=== PATIENT | female | born 2000 | race Caucasian/White ===

== ENCOUNTER 2023-03-27 08:51 | Outpatient (AMB) | payer BC, SELFPAY ==
[2023-03-27 09:26] VITALS: BP 128/78; PULSE 75; TEMP 36.7; O2SAT 98; BMI 34.3
--- NOTE | 2023-03-27 09:26 | MHC.OFFWIV ---
Intake Vital Signs 03/27/23 09:26 Height 5 ft 4 in Weight 200 lb BMI 34.3 BP 128/78 Blood Pressure Location Lt brachial Position Sitting Pulse 75 Pulse Source Pulse Oximeter Temp 98.0 F Temp Source Oral Pulse Oximetry (%) 98 Oxygen Delivery Method Room Air Intake Visit Reasons: [employer] sore throat/chest congestion [id number] Intake Note: pt is here for c.o congestion, sore throat, coughing causing vomiting Patient Tobacco Use Status: Current everyday Tobacco user Allergies No Known Allergies Allergy (Verified 03/27/23 09:44) Medication List - Last Reconciled 03/27/23 by Flash García MD cyclobenzaprine 5 mg PO TID PRN Do you need a note to return to daycare/school/sports/work: Yes HPI [employer] sore throat/chest congestion [id number] HPI Details Patient presents for a sick visit. Reporting symptoms of sinus congestion, sore throat and difficulty swallowing. Low-grade fever. No family member is sick. No recent travel. Patient reports symptoms of malaise and fatigue. Number IU PFS Social History Patient Tobacco Use Status: Current everyday Tobacco user Physical Exam Vital Signs: Last Vital Signs Temp 98.0 F 03/27/23 09:26 Pulse 75 03/27/23 09:26 BP 128/78 03/27/23 09:26 Pulse Ox 98 03/27/23 09:26 Oxygen Delivery Method Room Air 03/27/23 09:26 BMI result Body Mass Index 34.3 Const General: cooperative and healthy appearing Nutritional Appearance: well nourished Orientation/consciousness: patient oriented x3 Limitations: no limitations HEENT Head: Yes normal to inspection Eyes General: appearance normal, both eyes and all related structures Neck Neck: Yes normal visual inspection Chest Chest palpation & inspection: normal palpation of entire chest wall Resp Effort & Inspection: normal respiratory effort Neuro General: patient oriented x3 Assessment & Plan Assessment & Plan (1) Upper respiratory tract infection: Code(s): J06.9 - Acute upper respiratory infection, unspecified Plan: Antibiotics ordered. Increase fluid intake. Tylenol for aches and pains. If symptoms worsen, follow-up here for a recheck. Coding Level of Care Code Est Pt Level 3 (74080) Diagnoses Upper respiratory tract infection J06.9
== END 2023-03-27 09:44 | disposition home or self-care (01) ==
PROVIDERS: PCP Nurse Practitioner Family; Visit Provider Internal Medicine
DX: Z13.9 Encounter for screening, unspecified (principal); J06.9 Acute upper respiratory infection, unspecified
CPT/HCPCS: 87880; 99213